=== PATIENT | male | born 1970 | race Caucasian/White ===

== ENCOUNTER → 2018-01-22 | Outpatient (CLI) | payer OTHER | END | disposition home or self-care (01) | LOC: CVU 06:43 | PROVIDERS: ATTEND Internal Medicine | DX: I10 Essential (primary) hypertension (principal); E55.9 Vitamin D deficiency, unspecified; E78.2 Mixed hyperlipidemia; K29.70 Gastritis, unspecified, without bleeding; Z82.49 Family history of ischemic heart disease and other diseases of the circulatory system; Z87.891 Personal history of nicotine dependence | CPT/HCPCS: 0399T; 93306 ==

== ENCOUNTER → 2018-02-17 | Outpatient (CLI) | payer OTHER | END | disposition home or self-care (01) | LOC: CFH 07:58 | PROVIDERS: ATTEND Nurse Practitioner Primary Care | DX: M85.89 Other specified disorders of bone density and structure, multiple sites (principal); E29.1 Testicular hypofunction; E55.9 Vitamin D deficiency, unspecified; I10 Essential (primary) hypertension; F06.31 Mood disorder due to known physiological condition with depressive features; Z86.59 Personal history of other mental and behavioral disorders; Z79.899 Other long term (current) drug therapy | CPT/HCPCS: 77080 ==

== ENCOUNTER 2020-10-02 13:35 | Emergency (ER) | payer OTHER ==
[~2020-10-02] VITALS: Ht 185.4 cm; Wt 93.8 kg
[2020-10-02 14:38] VITALS: BP 149/88
== END 2020-10-02 16:32 | disposition home or self-care (01) ==
LOC: ED 16:15
DX: S42.212A Unspecified displaced fracture of surgical neck of left humerus, initial encounter for closed fracture (principal); W18.39XA Other fall on same level, initial encounter; Y93.89 Activity, other specified; Y92.89 Other specified places as the place of occurrence of the external cause; Y99.0 Civilian activity done for income or pay
CPT/HCPCS: 29105; 99283

== ENCOUNTER 2020-10-11 12:08 | Day surgery (SDC) | payer OTHER ==
[2020-10-10 09:30] LABS: ALANINE AMINOTRANSFERASE 20 U/L (12-78); ALBUMIN 3.5 g/dL (3.4-5.0); CALCIUM 9.3 mg/dL (8.5-10.1); CHLORIDE 97 mmol/L (98-107)
[2020-10-10 09:32] LABS: ALKALINE PHOSPHATASE 90 U/L (45-117); BILIRUBIN,TOTAL 0.8 mg/dL (0.2-1.0); CREATININE 0.78 mg/dL (0.7-1.3); TOTAL PROTEIN 7.8 g/dL (6.4-8.2)
[2020-10-10 09:39] LABS: ANION GAP 6 mmol/L (5-15)
[~2020-10-11] VITALS: Ht 188 cm; Wt 90.5 kg
[~2020-10-11 12:08] MED LIST: FISH1CAP PO; HYDR25TA6 PO; OLME40TA12 PO
[2020-10-11 13:20] VITALS: BP 150/87
[2020-10-11] MEDS ORDERED: CHLORHEXIDINE 15 ML UDC ONE (13:26)
[2020-10-11] MEDS ORDERED: MEPERIDINE/PF 25MG/0.5ML IVPush PRN (13:30)
[2020-10-11] MEDS ORDERED: LABETALOL 5MG/ML, 20ML IV PRN (13:30)
[2020-10-11] MEDS ORDERED: CHLORHEXIDINE 15 ML UDC PO ONE (13:30)
[2020-10-11] MEDS ORDERED: DIPHENHYDRAMINE 50 MG/ML, 1ML IVPush PRN (13:30)
[2020-10-11] MEDS ORDERED: HYDROmorphone 1 MG/ML, 1ML INJ IVPush PRN (13:30)
[2020-10-11] MEDS ORDERED: LACTATED RINGERS 1,000 ML IV SCH (13:30)
[2020-10-11] MEDS ORDERED: FENTANYL PF 100 MCG/2ML IV PRN (13:30)
[2020-10-11] MEDS ORDERED: HALOPERIDOL 5 MG/ML IV PRN (13:30)
[2020-10-11] MEDS ORDERED: OXYcodone 5 MG/5 ML ORAL.SOL UDC PO PRN (13:30)
[2020-10-11] MEDS ORDERED: ACETAMINOPHEN 325 MG TABLET PO PRN (13:30)
[2020-10-11] MEDS ORDERED: PROMETHAZINE 25 MG/ML, 1ML IVPush PRN (13:30)
[2020-10-11] MEDS ORDERED: hydrALAzine 20 MG/ML, 1ML IV PRN (13:30)
[2020-10-11] MEDS ORDERED: MIDAZOLAM 1 MG/ML, 2ML ONE (14:34)
[2020-10-11] MEDS ORDERED: FENTANYL PF 250 MCG/5ML ONE (14:35)
[2020-10-11] MEDS ORDERED: DEXAMETHASONE 4 MG/ML, 1ML ONE (15:25)
[2020-10-11] MEDS ORDERED: TRANEXAMIC ACID 100 MG/ML, 10ML ONE ×2 (16:15)
[2020-10-11] MEDS ORDERED: GLYCOPYRROLATE 0.2MG/1ML, 5ML ONE (17:37)
[2020-10-11] MEDS ORDERED: PROPOFOL 10 MG/ML, 20ML ONE (17:37)
[2020-10-11] MEDS ORDERED: ONDANSETRON 2MG/ML, 2ML ONE (17:37)
[2020-10-11] MEDS ORDERED: NEOSTIGMINE 1 MG/ML, 10ML ONE (17:37)
[2020-10-11] MEDS ORDERED: ROCURONIUM 10MG/ML,5ML ONE (17:37)
[2020-10-11] MEDS ORDERED: SUCCINYLCHOLINE 20 MG/ML, 10ML ONE (17:37)
[2020-10-11] MEDS ORDERED: CEFAZOLIN 1,000 MG ONE (17:37)
== END 2020-10-11 20:15 | disposition home or self-care (01) ==
LOC: OUT 12:08
PROVIDERS: ATTEND Orthopaedic Surgery
DX: S42.222A 2-part displaced fracture of surgical neck of left humerus, initial encounter for closed fracture (principal); G89.18 Other acute postprocedural pain; I10 Essential (primary) hypertension; Z20.822 Contact with and (suspected) exposure to COVID-19; Z79.899 Other long term (current) drug therapy; Z87.891 Personal history of nicotine dependence; W00.0XXA Fall on same level due to ice and snow, initial encounter; Y93.01 Activity, walking, marching and hiking; Y92.89 Other specified places as the place of occurrence of the external cause; Y99.0 Civilian activity done for income or pay
CPT/HCPCS: 23615; 36415; 64415; 73060; 80053; C1713; C1762; J0330; J0690; J1100; J2250; J2405; J2704; J2710; J3010; J7120; U0003; 76000